=== PATIENT | female | born 1985 | race Hispanic/Latino ===

== ENCOUNTER 2016-06-27 15:44 | Emergency (ER) | payer OTHER ==
[~2016-06-27] VITALS: Ht 161.3 cm; Wt 93.0 kg
[~2016-06-27 15:44] MED LIST: AUGMENTIN875TAB PO; ERRIN0.35 MG PO; FLAGYL500 MG OR; FLAGYL500 MG PO; FLUZONE SPLT1 M1 IM; HYDROCHLOROT12.5 MG PO; HYDROCHLOROT25 MG PO; LABETALOL100 MG PO; LISINOPRIL10 MG PO; MIRENA IU; NORVASC PO; PRENATAL 1 OR; TORADOL PO; TUBERSOL5 MG/0.1 M ID
[2016-06-27 17:49] LABS: HEMATOCRIT 39.1 % (37.0-47.0); HEMOGLOBIN 13.6 g/dl (12.0-16.0); IMMATURE GRANULOCYTES 0.1 % (0.0-1.0); MEAN CELL VOLUME 85.7 fL CALC (80.0-100.0); MEAN CORPUSCULAR HGB 29.8 pG CALC (26.0-32.0); MEAN CORPUSCULAR HGB CONC 34.8 g/L CALC (32.0-36.0); NEUT# 4.37 thou/uL (2.00-7.15); RED BLOOD COUNT 4.56 mill/uL (4.20-5.60)
[2016-06-27 18:16] LABS: URINE BILIRUBIN - DIPSTICK NEGATIVE (NEGATIVE); URINE BLOOD DIPSTICK TRACE-INTACT (NEGATIVE); URINE COLOR YELLOW; URINE GLUCOSE - DIPSTICK NEGATIVE (NEGATIVE); URINE KETONE 15 mg/dL (NEGATIVE); URINE LEUK ESTERASE TRACE (NEGATIVE); URINE PROTEIN - DIPSTICK 30 mg/dL (NEG-TRACE)
[2016-06-27 18:16] LABS: ALBUMIN 4.7 g/dL (3.2-5.0); ALKALINE PHOSPHATASE 94 u/l (38-126); ANION GAP 18 (6-22 (CALC)); BILIRUBIN, TOTAL 2.5 mg/dL (0.0-1.4); BUN 12 mg/dL (7-17); BUN/CREATININE RATIO 19 (12-20 (CALC)); CALCIUM 9.6 mg/dL (8.4-10.2); CARBON DIOXIDE 24 mmol/l (22-30); CHLORIDE 104 mmol/l (95-108); CREATININE 0.6 mg/dL (0.5-1.0); GFR > 60 ML/MIN (>=60 (CALC)); GFR FOR AFR.AMER. > 60 ML/MIN (>=60 (CALC)); GLUCOSE 106 mg/dL (65-105); POTASSIUM 3.3 mmol/l (3.5-5.1); SGOT/AST 28 u/l (14-36); SGPT/ALT 33 u/l (9-52); SODIUM 143 mmol/l (137-146); TOTAL PROTEIN 8.5 g/dL (6.3-8.2)
[2016-06-27 18:18] LABS: URINE CLARITY CLOUDY; URINE NITRITE - DIPSTICK POSITIVE (Negative)
[2016-06-27 18:19] LABS: BARBITURATES NEGATIVE (NEGATIVE); COCAINE NEGATIVE (NEGATIVE); METHADONE NEGATIVE (NEGATIVE); OXCYCODONE NEGATIVE (NEGATIVE); TETRAHYDROCANNABIONOL NEGATIVE (NEGATIVE); TRICYLIC ANTIDEPRESSANTS NEGATIVE (NEGATIVE)
[2016-06-27 18:37] LABS: URINE BACTERIA FEW hpf; URINE SQUAMOUS EPITHELIAL CELL FEW EPI/hpf (0-FEW)
[2016-06-27] MEDS ORDERED: FIORICET PO (18:49)
[2016-06-27 18:56] VITALS: BP 187/86
== END 2016-06-27 18:57 | disposition home or self-care (01) | DRG 305 ==
LOC: ED 15:44
PROVIDERS: Emergency Medicine
DX: I10 Essential (primary) hypertension (principal); R51 Headache

== ENCOUNTER 2016-10-28 16:04 | Emergency (ER) | payer OTHER ==
[~2016-10-28] VITALS: Ht 161.3 cm; Wt 101.0 kg
[~2016-10-28 16:04] MED LIST changes: +FIORICET PO
[2016-10-28] MEDS ORDERED: LISINOPRIL10 MG PO ×2 (16:19→17:53)
[2016-10-28 17:08] LABS: HEMATOCRIT 38.8 % (37.0-47.0); HEMOGLOBIN 13.4 g/dl (12.0-16.0); IMMATURE GRANULOCYTES 0.1 % (0.0-1.0); MEAN CELL VOLUME 85.7 fL CALC (80.0-100.0); MEAN CORPUSCULAR HGB 29.6 pG CALC (26.0-32.0); MEAN CORPUSCULAR HGB CONC 34.5 g/L CALC (32.0-36.0); NEUT# 4.52 thou/uL (2.00-7.15); RED BLOOD COUNT 4.53 mill/uL (4.20-5.60); RED CELL DISTRI WIDTH 12.8 % (11.5-15.5)
[2016-10-28 17:14] LABS: URINE BILIRUBIN - DIPSTICK NEGATIVE (NEGATIVE); URINE BLOOD DIPSTICK TRACE-INTACT (NEGATIVE); URINE CLARITY CLEAR; URINE COLOR YELLOW; URINE GLUCOSE - DIPSTICK NEGATIVE (NEGATIVE); URINE KETONE NEGATIVE (NEGATIVE); URINE LEUK ESTERASE TRACE (NEGATIVE); URINE NITRITE - DIPSTICK NEGATIVE (Negative); URINE PROTEIN - DIPSTICK NEGATIVE (NEG-TRACE); URINE UROBILINOGEN - DIPSTICK 0.2 E.U./dL (0.2)
[2016-10-28 17:15] LABS: ALBUMIN 4.8 g/dL (3.2-5.0); ALKALINE PHOSPHATASE 89 u/l (38-126); ANION GAP 17 (6-22 (CALC)); BILIRUBIN, TOTAL 1.5 mg/dL (0.0-1.4); BUN 12 mg/dL (7-17); BUN/CREATININE RATIO 22 (12-20 (CALC)); CALCIUM 9.5 mg/dL (8.4-10.2); CARBON DIOXIDE 27 mmol/l (22-30); CHLORIDE 101 mmol/l (95-108); CREATININE 0.5 mg/dL (0.5-1.0); GFR > 60 ML/MIN (>=60 (CALC)); GFR FOR AFR.AMER. > 60 ML/MIN (>=60 (CALC)); GLUCOSE 131 mg/dL (65-105); POTASSIUM 3.9 mmol/l (3.5-5.1); SGOT/AST 20 u/l (14-36); SGPT/ALT 40 u/l (9-52); SODIUM 140 mmol/l (137-146); TOTAL PROTEIN 8.4 g/dL (6.3-8.2)
[2016-10-28 17:17] LABS: BARBITURATES NEGATIVE (NEGATIVE); COCAINE NEGATIVE (NEGATIVE); METHADONE NEGATIVE (NEGATIVE); OXCYCODONE NEGATIVE (NEGATIVE); TETRAHYDROCANNABIONOL NEGATIVE (NEGATIVE); TRICYLIC ANTIDEPRESSANTS NEGATIVE (NEGATIVE)
[2016-10-28 18:22] VITALS: BP 170/99
== END 2016-10-28 18:36 | disposition home or self-care (01) | DRG 305 ==
LOC: ED 16:04
PROVIDERS: Emergency Medicine
DX: I10 Essential (primary) hypertension (principal)

== ENCOUNTER 2017-06-10 08:07 | Emergency (ER) | payer OTHER ==
[~2017-06-10] VITALS: Ht 161.3 cm; Wt 100.0 kg
[2017-06-10 08:45] LABS: URINE BILIRUBIN - DIPSTICK NEGATIVE (NEGATIVE); URINE BLOOD DIPSTICK MODERATE (NEGATIVE); URINE COLOR YELLOW; URINE GLUCOSE - DIPSTICK NEGATIVE (NEGATIVE); URINE KETONE NEGATIVE (NEGATIVE); URINE NITRITE - DIPSTICK NEGATIVE (Negative); URINE PH 5.5 (4.5-8.0); URINE PROTEIN - DIPSTICK NEGATIVE (NEG-TRACE); URINE SPECIFIC GRAVITY >=1.030; URINE UROBILINOGEN - DIPSTICK 0.2 E.U./dL (0.2)
[2017-06-10 08:46] LABS: URINE CLARITY SL CLOUDY; URINE LEUK ESTERASE SMALL (NEGATIVE)
[2017-06-10 08:47] LABS: URINE BACTERIA FEW hpf; URINE EPITHELIAL CELLS FEW EPI/hpf (0-FEW)
[2017-06-10 09:53] VITALS: BP 160/81
== END 2017-06-10 09:57 | disposition home or self-care (01) | DRG 778 ==
LOC: ED 08:07
PROVIDERS: Emergency Medicine
DX: O20.9 Hemorrhage in early pregnancy, unspecified (principal); O16.1 Unspecified maternal hypertension, first trimester; Z3A.00 Weeks of gestation of pregnancy not specified

== ENCOUNTER → 2018-05-08 | Outpatient (REF) | payer SELFPAY ==
[~2018-05-08] VITALS: Ht 162.6 cm; Wt 92.5 kg
[~2018-05-08] MED LIST changes: +ATORVASTATIN CA20 MG PO; +LABETALOL200 MG PO; +LISINOPRIL40 MG PO; +MAXZIDE-25MG1 COMBO PO; +METFORMIN HCL850 MG PO; +METFORMIN500 MG PO; +MOTRIN800 MG PO; +PERCOCET 5/325M1 TAB PO; +PRE-NATAL PO
[2018-05-08 09:55] VITALS: BP 143/104
== END | disposition home or self-care (01) | DRG 951 ==
LOC: PO 08:59 → ORM 09:00
PROVIDERS: ATTEND Surgery
DX: Z01.818 Encounter for other preprocedural examination (principal); K43.9 Ventral hernia without obstruction or gangrene; E11.9 Type 2 diabetes mellitus without complications; I10 Essential (primary) hypertension; E78.00 Pure hypercholesterolemia, unspecified; Z98.890 Other specified postprocedural states

== ENCOUNTER 2018-05-10 07:30 | Day surgery (SDC) | payer OTHER ==
[~2018-05-10 07:30] MED LIST changes: -MOTRIN800 MG PO; -PERCOCET 5/325M1 TAB PO
[2018-05-10] MEDS ORDERED: MOTRIN800 MG PO (10:41)
[2018-05-10] MEDS ORDERED: PERCOCET 5/325M1 TAB PO (10:41)
[2018-05-10 11:10] VITALS: BP 121/65
== END 2018-05-10 11:20 | disposition home or self-care (01) | DRG 355 ==
LOC: ORM 07:30
PROVIDERS: ATTEND Surgery
PROC: 0WUF4JZ Supplement Abdominal Wall with Synthetic Substitute, Percutaneous Endoscopic Approach (ICD-10-PCS; principal; 2018-05-10)
DX: K42.9 Umbilical hernia without obstruction or gangrene (principal)
CPT/HCPCS: J0131; J1100; J2710

== ENCOUNTER 2019-11-27 16:28 | Emergency (ER) | payer OTHER ==
[~2019-11-27] VITALS: Ht 162.6 cm; Wt 105.0 kg
[~2019-11-27 16:28] MED LIST changes: +MOTRIN800 MG PO; +PERCOCET 5/325M1 TAB PO
[2019-11-27] MEDS ORDERED: METFORMIN500 M2 PO (17:08)
[2019-11-27 17:21] LABS: IMMATURE GRANULOCYTES 0.3 % (0.0-5.0); MEAN CELL VOLUME 85.4 fL CALC (80.0-100.0); MEAN CORPUSCULAR HGB 28.3 pG CALC (26.0-32.0); MEAN CORPUSCULAR HGB CONC 33.1 g/dL CAL (32.0-36.0); NEUT# 4.5 thou/uL (2.00-7.15); RED BLOOD COUNT 4.6 mill/uL (4.20-5.60); RED CELL DISTRI WIDTH 13.2 % (11.5-15.5)
[2019-11-27 17:22] LABS: HEMATOCRIT 39.3 % (37.0-47.0)
[2019-11-27 17:36] LABS: BUN 16 mg/dL (7-17); BUN/CREATININE RATIO 26 (12-20 (CALC)); CHLORIDE 98 mmol/l (95-108); CREATININE 0.6 mg/dL (0.5-1.0); GFR > 60 ML/MIN (>=60 (CALC)); GFR FOR AFR.AMER. > 60 ML/MIN (>=60 (CALC)); POTASSIUM 4.1 mmol/l (3.5-5.1); SGOT/AST 27 u/l (14-36); SODIUM 136 mmol/l (137-146)
[2019-11-27 17:48] LABS: ALKALINE PHOSPHATASE 107 u/l (38-126); ANION GAP 14 (6-22 (CALC)); BILIRUBIN, TOTAL 1.3 mg/dL (0.0-1.4); CARBON DIOXIDE 28 mmol/l (22-30); TOTAL PROTEIN 8.8 g/dL (6.3-8.2)
[2019-11-27 18:05] LABS: TSH, 3RD GENERATION 0.85 uIU/mL (0.47 - 4.68)
[2019-11-27 19:23] VITALS: BP 153/87
== END 2019-11-27 19:23 | disposition home or self-care (01) ==
LOC: ED 16:28
PROVIDERS: Family Medicine
DX: R00.2 Palpitations (principal); R51 Headache; E11.9 Type 2 diabetes mellitus without complications; I10 Essential (primary) hypertension; Z79.84 Long term (current) use of oral hypoglycemic drugs

== ENCOUNTER 2022-08-10 07:13 | Day surgery (SDC) | payer OTHER ==
[~2022-08-10] VITALS: Ht 162.6 cm; Wt 95.3 kg
[~2022-08-10 07:13] MED LIST changes: +HYDRALAZINE HYD25 MG PO; +METFORMIN HCL1000 MG PO; +METFORMIN500 M2 PO; +NORVASC10 M1 PO; +SIMVASTATIN10 MG PO; +TRANDATE300 MG PO; +TRULICITY0.75 MG/0. IJ
[2022-08-10] MEDS ORDERED: PERCOCET 5/321 COMBO PO (10:11)
[2022-08-10 11:32] VITALS: BP 123/76
== END 2022-08-10 11:47 | disposition home or self-care (01) ==
LOC: ORM 07:13
PROVIDERS: ATTEND Surgery
DX: K81.1 Chronic cholecystitis (principal); I10 Essential (primary) hypertension; E11.9 Type 2 diabetes mellitus without complications; Z79.85 Long-term (current) use of injectable non-insulin antidiabetic drugs; Z79.84 Long term (current) use of oral hypoglycemic drugs
CPT/HCPCS: J0131; J0690

== ENCOUNTER 2023-03-04 02:39 | Emergency (ER) | payer SELFPAY ==
[~2023-03-04] VITALS: Ht 162.6 cm; Wt 88.0 kg
[2023-03-04] VITALS (7 sets, daily range): BP systolic 120–194; BP diastolic 78–110
[~2023-03-04 02:39] MED LIST changes: +PERCOCET 5/321 COMBO PO
[2023-03-04 03:28] LABS: BASO% 0.5 % (0-3); EOS% 1.3 % (0-8); HEMATOCRIT 36.8 % (37.0-47.0); HEMOGLOBIN 12.4 g/dl (12.0-16.0); IMMATURE GRANULOCYTES 0.2 % (0.0-5.0); MEAN CELL VOLUME 86.8 fL CALC (80.0-100.0); MEAN CORPUSCULAR HGB 29.2 pG CALC (26.0-32.0); MEAN CORPUSCULAR HGB CONC 33.7 g/dL CAL (32.0-36.0); MONO% 4.9 % (2-13); NEUT# 3.25 thou/uL (2.00-7.15); NEUT% 53.1 % (42-76); RED BLOOD COUNT 4.24 mill/uL (4.20-5.60)
[2023-03-04 03:40] LABS: ALBUMIN 4.2 g/dL (3.2-5.0); ALKALINE PHOSPHATASE 112 u/l (38-126); BUN 14 mg/dL (7-17); BUN/CREATININE RATIO 25 (12-20 (CALC)); CARBON DIOXIDE 27 mmol/l (22-30); CHLORIDE 101 mmol/l (95-108); CREATININE 0.6 mg/dL (0.5-1.0); GFR FOR AFR.AMER. > 60 ML/MIN (>=60 (CALC)); GFR OTHER RACES > 60 ML/MIN (>=60 (CALC)); SGOT/AST 24 u/l (14-36); SODIUM 138 mmol/l (137-146); TOTAL PROTEIN 7.4 g/dL (6.3-8.2)
[2023-03-04 03:41] LABS: ANION GAP 14 (6-22 (CALC)); BILIRUBIN, TOTAL 1.1 mg/dL (0.02-1.3); POTASSIUM 3.7 mmol/l (3.5-5.1)
[2023-03-04 04:11] LABS: TSH, 3RD GENERATION 1.94 uIU/mL (0.47 - 4.68)
== END 2023-03-04 04:51 | disposition home or self-care (01) | DRG 880 ==
LOC: ED 02:39
PROVIDERS: Family Medicine
DX: F43.0 Acute stress reaction (principal)